=== PATIENT | male | born 1955 | race Caucasian/White ===

== ENCOUNTER 2021-12-29 19:03 | Emergency (ER) | payer MEDICARE, OTHER ==
[~2021-12-29] VITALS: Ht 180.3 cm; Wt 174.8 kg
[2021-12-29] MEDS ORDERED: ACET-861 PO (19:12)
[2021-12-29] MEDS ORDERED: ASPI1TAB23 PO (19:12)
[2021-12-29] MEDS ORDERED: AUGMENTIN 875 MG TAB PO ONE (22:50)
[2021-12-29] MEDS ORDERED: BOOSTRIX/ADACEL VACCINE (DIPHTH/PERTUSS/ACELL/TETANUS) 0.5ML SYR IM ONE (22:50)
[2021-12-29] MEDS ORDERED: AMOX875T2 PO (22:53)
[2021-12-29 23:35] VITALS: BP 159/70
== END 2021-12-29 23:38 | disposition home or self-care (01) ==
LOC: M ED 19:03
DX: S61.111A Laceration without foreign body of right thumb with damage to nail, initial encounter (principal); I10 Essential (primary) hypertension; Y92.009 Unspecified place in unspecified non-institutional (private) residence as the place of occurrence of the external cause; Y93.G1 Activity, food preparation and clean up; Z87.442 Personal history of urinary calculi; Z79.82 Long term (current) use of aspirin; Z79.899 Other long term (current) drug therapy

== ENCOUNTER → 2022-10-13 | Outpatient (CLI) | payer MEDICARE, OTHER ==
[~2022-10-13] MED LIST: ACET-861 PO; AMOX875T2 PO; ASPI1TAB23 PO
== END ==
LOC: M PLAIMG 13:46
PROVIDERS: ATTEND Physician Assistant Surgical
DX: S46.011D Strain of muscle(s) and tendon(s) of the rotator cuff of right shoulder, subsequent encounter (principal); M19.011 Primary osteoarthritis, right shoulder; M84.821 Other disorders of continuity of bone, right humerus; Z53.8 Procedure and treatment not carried out for other reasons

== ENCOUNTER → 2023-10-18 | Outpatient (REF) | payer MEDICARE, OTHER | LOC: M LAB REF 16:21 | PROVIDERS: ATTEND Nurse Practitioner Adult Health | DX: N20.0 Calculus of kidney (principal) ==